=== PATIENT | male | born 1985 | race African-American/Black ===

== ENCOUNTER 2019-10-14 22:19 | Emergency (ER) | payer MEDICAID ==
[~2019-10-14] VITALS: Ht 170.2 cm; Wt 85.3 kg
[2019-10-14 22:22] VITALS: Ht 170.2 cm; Wt 85.3 kg
[2019-10-15 06:43] VITALS: BP 128/89
== END 2019-10-15 06:43 | disposition home or self-care (01) ==
LOC: ED 22:19
DX: F43.0 Acute stress reaction (principal)

== ENCOUNTER 2019-10-27 00:30 | Emergency (ER) | payer MEDICAID ==
[~2019-10-27] VITALS: Ht 170.2 cm; Wt 80.3 kg
[2019-10-27 01:06] VITALS: Ht 170.2 cm; Wt 80.3 kg
[2019-10-27 03:08] VITALS: BP 134/99
== END 2019-10-27 03:06 | disposition home or self-care (01) ==
LOC: ED 00:30
DX: S93.401A Sprain of unspecified ligament of right ankle, initial encounter (principal); X58.XXXA Exposure to other specified factors, initial encounter; Y93.89 Activity, other specified; Y92.89 Other specified places as the place of occurrence of the external cause; Y99.8 Other external cause status
CPT/HCPCS: Q0092